=== PATIENT | male | born 1935 | race Two or more races ===

== ENCOUNTER 2017-10-04 15:03 | Outpatient (CLI) | payer MEDICARE, OTHER | END 2017-10-04 15:04 | disposition home or self-care (01) | LOC: LAB 15:03 | PROVIDERS: ATTEND Internal Medicine | DX: G56.00 Carpal tunnel syndrome, unspecified upper limb (principal) | CPT/HCPCS: 36415; 84443 ==

== ENCOUNTER 2018-02-18 08:00 | Outpatient (CLI) | payer MEDICARE, OTHER ==
[2018-02-18 13:41] LABS: PSA FREE 0.35 ng/mL (0.16-2.81)
[2018-02-18 13:42] LABS: PSA TOTAL 2.26 ng/mL (0.000-2.000)
== END 2018-02-18 08:01 | disposition home or self-care (01) ==
LOC: LAB.R 08:00
PROVIDERS: ATTEND Internal Medicine
DX: N40.0 Benign prostatic hyperplasia without lower urinary tract symptoms (principal)
CPT/HCPCS: 84154

== ENCOUNTER 2018-03-04 07:50 | Outpatient (CLI) | payer MEDICARE ==
[2018-03-04 08:10] LABS: BASOPHILS # (AUTO) 0.1 10^3/uL (0.0-0.1); BASOPHILS % (AUTO) 1.4 %; EOSINOPHILS # (AUTO) 0.2 10^3/uL (0.0-0.7); EOSINOPHILS % (AUTO) 4.3 %; HGB - HEMOGLOBIN 14.7 g/dL (14.0-18.0); LYMPHOCYTES # (AUTO) 1.6 10^3/uL (1.5-3.5); LYMPHOCYTES % (AUTO) 32.2 %; MEAN CORPUSCULAR HEMOGLOBIN 31.4 pg (27.0-31.0); MEAN CORPUSCULAR HGB CONC 33.6 g/dL (32.0-36.0); MEAN CORPUSCULAR VOLUME 93.6 fL (80.0-94.0); MEAN PLATELET VOLUME 7.4 fL (7.4-11.4); MONOCYTES # (AUTO) 0.4 10^3/uL (0.0-1.0); NEUTROPHILS # (AUTO) 2.6 10^3/uL (1.5-6.6); NEUTROPHILS % (AUTO) 54.1 %; PLT - PLATELET COUNT 255 10^3/uL (130-450); RED BLOOD COUNT 4.67 10^6/uL (4.70-6.10); RED CELL DISTRIBUTION WIDTH 13.5 % (12.0-15.0); WHITE BLOOD COUNT 4.9 x10^3/uL (4.8-10.8)
[2018-03-04 08:30] LABS: ALBUMIN 4.4 g/dL (3.2-5.5); ALBUMIN/GLOBULIN RATIO 1.8 (1.0-2.2); BILIRUBIN,TOTAL 0.6 mg/dL (0.2-1.0); CREATININE 0.9 mg/dL (0.6-1.2); TOTAL PROTEIN 6.8 g/dL (6.7-8.2)
== END 2018-03-04 07:51 | disposition home or self-care (01) ==
LOC: LAB 07:50
PROVIDERS: ATTEND Surgery Surgery of the Hand
DX: Z01.812 Encounter for preprocedural laboratory examination (principal)
CPT/HCPCS: 36415; 80053; 85025

== ENCOUNTER 2018-07-16 18:51 | Outpatient (CLI) | payer MEDICARE | END 2018-07-16 18:52 | disposition critical access hospital (66) | LOC: EMS 18:51 | PROVIDERS: ATTEND Surgery | DX: M25.551 Pain in right hip (principal) | CPT/HCPCS: A0425; A0429 ==

== ENCOUNTER 2018-07-16 19:06 | Emergency (ER) | payer MEDICARE ==
[2018-07-16] MEDS ORDERED: HYDROcod/ACETAM 5/325 MG TABLET PO STA (19:14)
[2018-07-16 19:15] VITALS: BP 157/103
--- NOTE | 2018-07-16 19:15 | ED Physician Documentation ---
PD HPI LOWER EXT INJURY - Stated complaint Stated Complaint: FALL - History obtained from History obtained from: Patient, Family (), EMS - History of Present Illness PD HPI LOW EXT INJURY LOCATION: Right (He was carrying [place]. He landed on his right side and has moderate right hip pain but was able to walk back into the house. He has scrapes on his lower extremity from the [employer], and he thinks he is up-to- date on tetanus. No head or neck injury.) Review of Systems Constitutional: denies: Fever, Chills Cardiac: denies: Chest pain / pressure, Palpitations Respiratory: denies: Dyspnea, Cough PD PAST MEDICAL HISTORY - Past Medical History Past Medical History: Yes Cardiovascular: Hypertension GI: GERD - Present Medications Home Medications: Ambulatory Orders Medication Instructions Recorded Confirmed Atorvastatin [Lipitor] 10 mg ORAL QPM 07/16/18 07/16/18 Cyclobenzaprine [Flexeril] 10 mg PO TID PRN #20 tablet 07/16/18 Esomeprazole Magnesium [Nexium] 40 mg PO DAILY 07/16/18 07/16/18 Hydrocodone/Acetaminophen 1 - 2 each PO Q6H PRN #14 tablet 07/16/18 [Hydrocodon-Acetaminophen 5-325] acetaZOLAMIDE ER [Diamox ER] 500 mg ORAL BID 07/16/18 07/16/18 - Allergies Allergies/Adverse Reactions: Allergies Allergy/AdvReac Type Severity Reaction Status Date / Time bimatoprost [From [place]] Allergy Unknown Verified 07/16/18 19:16 - Living Situation Living Situation: reports: With spouse/s.o. PD ED PE NORMAL - Vitals Vital signs reviewed: Yes - General General: Alert and oriented X 3, No acute distress - HEENT HEENT: PERRL, EOMI - Neck Neck: Supple, no meningeal sign, No bony TTP - Extremities Extremities: Other (Hip and pelvis are nontender, he does have what seems to be muscular pain with extreme flexion and external rotation of the right hip but mild internal and external rotation is relatively painless. He has scrapes on the anterior right abbott.) - Neuro Neuro: Alert and oriented X 3, Normal speech Results - Vitals Vitals: Vital Signs - 24 hr 07/16/18 19:09 Temperature 36.7 C Heart Rate 73 Respiratory 18 Rate Blood Pressure 157/103 H O2 Saturation 97 Oxygen O2 Source Room air - Rads (name of study) XR R hip Radiology: EMP read contemporaneously (normal) PD MEDICAL DECISION MAKING - ED course ED course: He was ambulating comfortably with a walker after the x-ray, and his exam really is not consistent with a hip fracture, more buttock contusion. - Sepsis Event Vital Signs: Vital Signs - 24 hr 07/16/18 19:09 Temperature 36.7 C Heart Rate 73 Respiratory 18 Rate Blood Pressure 157/103 H O2 Saturation 97 Oxygen O2 Source Room air Departure - Departure Disposition: Home, Self Care Clinical Impression: Abrasion, leg without infection Contusion of right hip Qualifiers: Encounter type: initial encounter Qualified Code(s): S70.01XA - Contusion of right hip, initial encounter Condition: Good Record reviewed to determine appropriate education?: Yes Instructions: ED Contusion Hip Follow-Up: Blas Metzger MD [Provider Admit Priv/Credential] - Prescriptions: Cyclobenzaprine [Flexeril] 10 mg PO TID PRN #20 tablet PRN Reason: Spasms Hydrocodone/Acetaminophen [Hydrocodon-Acetaminophen 5-325] 1 - 2 each PO Q6H PRN #14 tablet PRN Reason: pain Comments: Your blood pressure was elevated today on check into the emergency department. This does not mean that you have hypertension, it is a common phenomenon to come to the emergency department and have elevated blood pressure. I recommend that you see your primary care physician within the week to have it rechecked when you are feeling better. Do not drink or drive while taking narcotic pain medication. Note that many narcotic pain relievers also contain Tylenol/acetaminophen. Please ensure that your total dose of acetaminophen from all sources does not exceed 3 g (3000 mg) per day. You may get constipated while on this medication. Take a stool softener such as Colace twice a day while you are on it. Also add an [id number] laxative such as senna or MiraLAX on any day that you do not have a bowel movement. If you received a narcotic pain medication or sedative while in the emergency department, do not drive for the next 24 hours.
--- NOTE | 2018-07-16 20:03 | XRAY Report ---
Reason: hip inj Procedure Date: 07/16/2018 Accession Number: [id number] / [id number] Procedure: XR - Hip w/Pelvis 2-3V RT CPT Code: FULL RESULT: EXAM: RIGHT HIP AND PELVIS RADIOGRAPHY EXAM DATE: 07/16/2018 07:55 PM. HISTORY: Hip injury. Right hip pain after fall today. COMPARISONS: None. TECHNIQUE: 1 view of the pelvis and 1 view of the hip. FINDINGS: Bones: Normal. No fracture or bone lesion. Joints: The bilateral hip, pubis symphysis, and sacroiliac joints are preserved. Soft Tissues: No acute findings. Vasectomy surgical clips suspected. IMPRESSION: No acute findings. [facility]
[2018-07-16] MEDS ORDERED: CYCLOBENZAPRINE 10 MG TABLET PO STA (20:14)
[2018-07-16] MEDS ORDERED: HYDROcod/ACET 5/325 Prepack 4 PO STA (21:00)
[2018-07-16] MEDS ORDERED: CYCLOBENZAPRINE 10 MG Prepack 2 PO PRN (21:00)
== END 2018-07-16 21:14 | disposition home or self-care (01) ==
LOC: ED 19:06
DX: S70.01XA Contusion of right hip, initial encounter (principal); S80.811A Abrasion, right lower leg, initial encounter; W17.89XA Other fall from one level to another, initial encounter; Y93.H2 Activity, gardening and landscaping; I10 Essential (primary) hypertension
CPT/HCPCS: 73502; 99283; A9270

== ENCOUNTER 2018-09-13 08:49 | Outpatient (CLI) | payer MEDICARE ==
[2018-09-13 13:49] LABS: BASOPHILS % (AUTO) 0.9 %; EOSINOPHILS # (AUTO) 0.3 10^3/uL (0.0-0.7); EOSINOPHILS % (AUTO) 6.1 %; LYMPHOCYTES # (AUTO) 1.6 10^3/uL (1.5-3.5); LYMPHOCYTES % (AUTO) 33.9 %; MEAN CORPUSCULAR HEMOGLOBIN 31.8 pg (27.0-31.0); MEAN CORPUSCULAR HGB CONC 33.8 g/dL (32.0-36.0); MEAN CORPUSCULAR VOLUME 94.1 fL (80.0-94.0); MEAN PLATELET VOLUME 8.6 fL (7.4-11.4); MONOCYTES # (AUTO) 0.3 10^3/uL (0.0-1.0); MONOCYTES % (AUTO) 6.3 %; NEUTROPHILS # (AUTO) 2.5 10^3/uL (1.5-6.6); NEUTROPHILS % (AUTO) 52.8 %; PLT - PLATELET COUNT 276 10^3/uL (130-450); RED CELL DISTRIBUTION WIDTH 13.4 % (12.0-15.0); WHITE BLOOD COUNT 4.8 x10^3/uL (4.8-10.8)
[2018-09-13 14:18] LABS: HB2 TOTAL 14.6 g/dL; HEMOGLOBIN A1C 0.6 g/dL; HEMOGLOBIN A1C % 5.9 % (4.6-6.2)
[2018-09-13 14:22] LABS: ALBUMIN 4.3 g/dL (3.2-5.5); ALBUMIN/GLOBULIN RATIO 1.7 (1.0-2.2); ALKALINE PHOSPHATASE 35 IU/L (42-121); ALT ALANINE AMINOTRANSFERASE 23 IU/L (10-60); AST ASPARTATE AMINOTRANSFERASE 26 IU/L (10-42); BILIRUBIN,TOTAL 0.9 mg/dL (0.2-1.0); BUN - BLOOD UREA NITROGEN 14 mg/dL (6-20); CHOLESTEROL 176 mg/dL; CREATININE 0.9 mg/dL (0.6-1.2); GFR - MDRD 81 (>89); HDL CHOLESTEROL 86 mg/dL; LDL CHOLESTEROL,CALCULATED 72 mg/dL; LDL/HDL RATIO 0.8 (<3.6); TOTAL PROTEIN 6.8 g/dL (6.7-8.2); VLDL CHOLESTEROL 18 mg/dL
[2018-09-13 14:33] LABS: CALCIUM 9.2 mg/dL (8.5-10.3); CARBON DIOXIDE - CO2 30 mmol/L (21-32); CHLORIDE 101 mmol/L (101-111); GLUCOSE 83 mg/dL (70-100); SODIUM 139 mmol/L (135-145)
== END 2018-09-13 08:50 | disposition home or self-care (01) ==
LOC: LAB.R 08:49
PROVIDERS: ATTEND Internal Medicine
DX: R73.9 Hyperglycemia, unspecified (principal); N40.0 Benign prostatic hyperplasia without lower urinary tract symptoms; E78.5 Hyperlipidemia, unspecified; K21.9 Gastro-esophageal reflux disease without esophagitis; Z12.5 Encounter for screening for malignant neoplasm of prostate
CPT/HCPCS: 80053; 80061; 83036; 85025; G0103; 83721; 84153